=== PATIENT | male | born 1945 | race Caucasian/White ===

== ENCOUNTER → 2018-03-09 | Outpatient (CLI) | payer OTHER, BC ==
[~2018-03-09] MED LIST: BENICAR40 MG PO; CHLORTHALIDONE25 MG PO; FLOMAX0.4 MG PO; LIPITOR 20 MG T20 M1 PO; METFORMIN HCL500 MG PO; NORVASC5 MG PO; OMEGA-31000 M1 PO; PAXIL10 MG PO; PLAVIX 75 MG TA75 M1 PO; PRAMIPEXOLE0.125 MG PO; PROTONIX40 M1 PO; SINGULAIR 10 MG10 M1 PO; SYMBICORT160 MCG/4. INH; TUDORZA PRESS400 MCG INH; XANAX 0.25 MG0.25 MG PO
--- NOTE | ~2018-03-09 | EKG ---
[place] [address] [facility] [facility] [place] [address] ELECTROCARDIOGRAM REPORT Name: LEANNJANET Room #: REG CLI [facility] [id number] Admission: 03/09/18 Attend Phys: Shubham Mendoza MD Discharge: Date of : 49 Report #: [id number] THIS REPORT FOR: //name// [facility] Test Date: 2018-03-09 Test Time: 06:39:47 Pat Name: JANET NORIEGA Department: Room: Gender: Spray I Painter: SOILA : 1945 Requested By: Shubham Mendoza Order Number: [id number] MD: Navdeep Pennington Measurements Intervals Celeste Rate: 58 P: 76 NJ: 147 QRS: 78 QRSD: 94 T: 66 QT: 414 QTc: 407 Interpretive Statements Sinus bradycardia Baseline wander in lead(s) III,aVF No previous ECG available for comparison Electronically Signed On 03-09-2018 8:51:01 CDT by Navdeep Pennington [email or web address] <ELECTRONICALLY SIGNED> By: Navdeep Pennington MD, [facility] 03/09/18 [id number] Navdeep Pennington MD, FACC /EPI
--- NOTE | ~2018-03-09 | O ---
[facility] [place] [address] OPERATIVE REPORT Name: JANET NORIEGA Room #: REG [facility].#: [id number] Admission: 03/09/18 Attend Phys: Shubham Mendoza MD Discharge: Date of : 49 Report #: [id number] THIS REPORT FOR: //name// CC: William Mendoza DATE OF SERVICE: 03/09/2018 PREOPERATIVE DIAGNOSIS: Left kidney stone. POSTOPERATIVE DIAGNOSIS: Left kidney stone. OPERATION PERFORMED: Shockwave lithotripsy. OPERATIVE SURGEON: Shubham Mendoza MD PREOPERATIVE INDICATIONS: The patient has a history of renal lithiasis. Recent outpatient evaluation showed about an 8 mm stone in the left kidney. Given options, he has elected shockwave lithotripsy. After adequate IV sedation, he was gently placed in supine where the stone was visualized under fluoroscopy. Following this, the lithotripter was initiated and gradually increased to a maximum PL of 4.0. 4000 total shocks were given and the stone appeared to fragment nicely. Procedure was done without complication. He was discharged in good shape and will follow up in about 10 days for postoperative x-ray. By: [id number] Shubham Mendoza MD /nt
== END | disposition home or self-care (01) ==
LOC: RAD 06:10
DX: N20.0 Calculus of kidney (principal); I10 Essential (primary) hypertension; J44.9 Chronic obstructive pulmonary disease, unspecified; E11.9 Type 2 diabetes mellitus without complications; Z86.010 Personal history of colon polyps; Z87.19 Personal history of other diseases of the digestive system; Z95.5 Presence of coronary angioplasty implant and graft; Z87.442 Personal history of urinary calculi; Z79.899 Other long term (current) drug therapy; Z95.1 Presence of aortocoronary bypass graft; Z98.890 Other specified postprocedural states; Z85.51 Personal history of malignant neoplasm of bladder